=== PATIENT | male | born 1980 | race African-American/Black ===

== ENCOUNTER 2017-05-31 09:36 | Inpatient (IN) | payer MEDICARE, MEDICAID ==
[~2017-05-31] VITALS: Ht 182.9 cm; Wt 97.1 kg
[~2017-05-31 09:36] MED LIST: DILANTIN100 MG ORAL; KEPPRA500 M4 ORAL; KEPPRA500 MG ORAL
[2017-05-31] MEDS ORDERED: levETIRAcetam 500 MG in D5W 110 ML IV ONE (09:45)
[2017-05-31] MEDS ORDERED: levETIRAcetam 500mg vial IV ONE (09:53)
[2017-05-31 09:58] LABS: BASOPHILS % (AUTO) 0.8 % (0.0-2.0); EOSINOPHILS % (AUTO) 4.6 % (0.0-3.0); LYMPHOCYTES % (AUTO) 27.8 % (20.0-45.0); MEAN CORPUSCULAR HEMOGLOBIN 26.2 PG (27.0-31.0); MEAN CORPUSCULAR HGB CONC 30.1 G/DL (32.0-36.0); MEAN CORPUSCULAR VOLUME 87 FL (80-99); MONOCYTES % (AUTO) 11.8 % (1.0-10.0); PLATELET COUNT 419 K/UL (150-450); RED BLOOD COUNT 5.72 M/UL (4.70-6.10); RED CELL DISTRIBUTION WIDTH 14.4 % (11.6-14.8); WHITE BLOOD COUNT 5.5 K/UL (4.8-10.8)
--- NOTE | 2017-05-31 10:07 | Emergency Room Report ---
History of Present Illness General Chief Complaint: Seizure Source: Patient, EMS Present Illness HPI 36-year-old male presents ED for evaluation of seizure. Per EMS patient was found on the bus with witnessed seizure. No reported head injury. Upon arrival patient is post ictal. EMS was not able to obtain a history regarding the patient. Upon arrival patient was recognized by the ER staff stating that he was here a few days ago with similar presentation of seizure. Patient states he has a history of seizures takes Keppra and Dilantin. States he is compliant with his medications. Denies alcohol drug use. States he feels okay otherwise. No other aggravating or relieving factors. Denies any other associated symptoms Allergies: Coded Allergies: No Known Allergies (Unverified , 05/26/17) UNABLE TO ASSESS (Unverified , 05/31/17) Patient History Past Medical History: seizures Past Surgical History: none Pertinent Family History: none Social History: Reports: drug use, Denies: alcohol use, smoking Immunizations: UTD Reviewed Nursing Documentation: PMH: Agreed, PSxH: Agreed Nursing Documentation-PMH Past Medical History Deferred: Pt Cognitively Impaired Review of Systems All Other Systems: negative except mentioned in HPI Physical Exam Vital Signs Date Time Temp Pulse Resp B/P Pulse Ox O2 Delivery O2 Flow Rate FiO2 05/31/17 09:19 113 20 124/82 97 Room Air Sp02 EP Interpretation: reviewed, normal General Appearance: no apparent distress, GCS 15, non-toxic, Postictal Head: normocephalic, atraumatic Eyes: bilateral eye PERRL, bilateral eye normal inspection ENT: hearing grossly normal, normal pharynx, no angioedema, normal voice Neck: full range of motion, supple/symm/no masses Respiratory: chest non-tender, lungs clear, normal breath sounds, speaking full sentences Cardiovascular #1: regular rate, rhythm, no edema Cardiovascular #2: 2+ carotid (R), 2+ carotid (L), 2+ radial (R), 2+ radial (L) , 2+ dorsalis pedis (R), 2+ dorsalis pedis (L) Gastrointestinal: normal bowel sounds, non tender, soft, non-distended, no guarding, no rebound Rectal: deferred Genitourinary: normal inspection, no CVA tenderness Musculoskeletal: back normal, gait/station normal, normal range of motion, non- tender Neurologic: alert, responsive, motor strength/tone normal, sensory intact, speech normal Psychiatric: judgement/insight normal, mood/affect normal, no suicidal/ homicidal ideation Reflexes: 3+ bicep (R), 3+ bicep (L), 3+ tricep (R), 3+ tricep (L), 3+ knee (R) , 3+ knee (L) Skin: normal color, no rash, warm/dry, well hydrated Lymphatic: no adenopathy Medical Decision Making Diagnostic Impression: Primary Impression: Seizure disorder Additional Impressions: Patient's noncompliance with other medical treatment and regimen Substance abuse ER Course Hospital Course 36-year-old male presents to ED status post seizure. History of seizure Differential diagnosis includes- breakthrough seizure, alcohol abuse, noncompliance with medication Clinical course Patient placed on stretcher. Initial history and physical I ordered labs, IV fluids, Keppra Labs-BUN/Cr elevated, no leukocytosis noted, hemoglobin/hematocrit stable. dilantin level low. Utox + ampehtamiens, THC EKG - NSR, no acute changes interprete by me Given loading dose of Dilantin. Patient was seen here a few days ago with similar presentation. Was discharged with Dilantin however it is clear that patient does not take his medications. Given that patient is still altered I believe he should be admitted. Case discussed with Dr. Mcmahan and he agreed to accept the patient to his service for further care and support. i. I feel this is a highly complex case requiring extensive working including EKG/Rhythm strip, Xray/CT/US, Blood/urine lab work, repeat exams while in ED, and administration of strong opiates/narcotics for pain control, admission to hospital or close patient follow up. Diagnosis - seizure, noncompliance with medical treatment regimen, substance abuse, VAN admitted to telemetry in serious condition Labs Test 05/31/17 09:45 05/31/17 10:02 White Blood Count 5.5 K/UL (4.8-10.8) Red Blood Count 5.72 M/UL (4.70-6.10) Hemoglobin 15.0 G/DL (14.2-18.0) Hematocrit 49.7 % (42.0-52.0) Mean Corpuscular Volume 87 FL (80-99) Mean Corpuscular Hemoglobin 26.2 PG (27.0-31.0) Mean Corpuscular Hemoglobin Concent 30.1 G/DL (32.0-36.0) Red Cell Distribution Width 14.4 % (11.6-14.8) Platelet Count 419 K/UL (150-450) Mean Platelet Volume 7.0 FL (6.5-10.1) Neutrophils (%) (Auto) 55.0 % (45.0-75.0) Lymphocytes (%) (Auto) 27.8 % (20.0-45.0) Monocytes (%) (Auto) 11.8 % (1.0-10.0) Eosinophils (%) (Auto) 4.6 % (0.0-3.0) Basophils (%) (Auto) 0.8 % (0.0-2.0) Sodium Level 141 mEQ/L (135-145) Potassium Level 3.9 mEQ/L (3.4-4.9) Chloride Level 96 mEQ/L (98-107) Carbon Dioxide Level 10 mEQ/L (20-30) Anion Gap 35 (5-15) Blood Urea Nitrogen 14 mg/dL (7-23) Creatinine 1.5 mg/dL (0.7-1.2) Estimat Glomerular Filtration Rate > 60 mL/min (>60) Glucose Level 118 mg/dL (74-106) Calcium Level 9.5 mg/dL (8.6-10.2) Total Bilirubin 0.3 mg/dL (0.0-1.2) Aspartate Amino Transf (AST/SGOT) 17 U/L (5-40) Alanine Aminotransferase (ALT/SGPT) 12 U/L (3-41) Alkaline Phosphatase 124 U/L (40-129) Total Protein 8.3 g/dL (6.6-8.7) Albumin 4.5 g/dL (3.5-5.2) Globulin 3.8 g/dL Albumin/Globulin Ratio 1.1 (1.0-2.7) Salicylates Level < 1 mg/dL (10-30) Acetaminophen Level < 10 ug/mL (10-30) Phenytoin (Dilantin) Level 1.0 ug/mL (10-20) Serum Alcohol < 10 mg/dL Urine Opiates Screen Negative (NEGATIVE) Urine Barbiturates Screen Negative (NEGATIVE) Phencyclidine (PCP) Screen Negative (NEGATIVE) Urine Amphetamines Screen Positive (NEGATIVE) Urine Benzodiazepines Screen Negative (NEGATIVE) Urine Cocaine Screen Negative (NEGATIVE) Urine Marijuana (THC) Screen Positive (NEGATIVE) EKG Diagnostic Results Rate: tachycardiac Rhythm: NSR ST Segments: no acute changes ASA given to the pt in ED: No Rhythm Strip Diag. Results EP Interpretation: yes Rhythm: NSR, no PVC's, no ectopy Last Vital Signs Date Time Temp Pulse Resp B/P Pulse Ox O2 Delivery O2 Flow Rate FiO2 05/31/17 09:19 113 20 124/82 97 Room Air Status: improved Disposition: ADMITTED INPATIENT Condition: Serious ALEXANDRE KRUSE M.D. May 31, 2017 10:07
[2017-05-31 10:17] LABS: ACETAMINOPHEN < 10 ug/mL (10-30); ALANINE AMINOTRANSFERASE 12 U/L (3-41); ALBUMIN/GLOBULIN RATIO 1.1 (1.0-2.7); ALCOHOL < 10 mg/dL; ANION GAP 35 (5-15); ASPARTATE AMINO TRANSFERASE 17 U/L (5-40); CALCIUM 9.5 mg/dL (8.6-10.2); CARBON DIOXIDE 10 mEQ/L (20-30); CHLORIDE 96 mEQ/L (98-107); CREATININE 1.5 mg/dL (0.7-1.2); GLOMERULAR FILTRATION RATE > 60 mL/min (>60); HEMOLYSIS 14; POTASSIUM 3.9 mEQ/L (3.4-4.9); SODIUM 141 mEQ/L (135-145); TOTAL PROTEIN 8.3 g/dL (6.6-8.7)
[2017-05-31 10:27] VITALS: BP 108/72
[2017-05-31] MEDS ORDERED: Phenytoin 1,000 MG in NS 275 ML IV ONE (10:30)
[2017-05-31 12:46] VITALS: BP 104/59
[2017-05-31] MEDS ORDERED: Morphine Sulfate 2mg/ml Inj IVP ONE (13:30)
[2017-05-31 14:20] VITALS: BP 128/66
[2017-05-31] MEDS ORDERED: LAMICTAL5 MG PO (14:44)
[2017-05-31] MEDS ORDERED: PHENYTOIN SODI200 MG PO (14:44)
[2017-05-31] MEDS ORDERED: Mylanta II UD 30ml ORAL PRN (14:45)
[2017-05-31] MEDS ORDERED: LORazepam Inj 2mg/ml 1ml IV PRN (14:45)
[2017-05-31] MEDS ORDERED: Morphine Sulfate 2mg/ml Inj IVP PRN (15:00)
[2017-05-31 16:30] VITALS: BP 108/66
--- NOTE | 2017-05-31 18:11 | Neurology Progress Note ---
Objective Physical Exam Last Vital Signs Date Time Temp Pulse Resp B/P Pulse Ox O2 Delivery O2 Flow Rate FiO2 05/31/17 14:20 97.3 92 16 128/66 97 Room Air Laboratory Tests Test 05/31/17 09:45 05/31/17 10:02 White Blood Count 5.5 K/UL (4.8-10.8) Red Blood Count 5.72 M/UL (4.70-6.10) Hemoglobin 15.0 G/DL (14.2-18.0) Hematocrit 49.7 % (42.0-52.0) Mean Corpuscular Volume 87 FL (80-99) Mean Corpuscular Hemoglobin 26.2 PG (27.0-31.0) L Mean Corpuscular Hemoglobin Concent 30.1 G/DL (32.0-36.0) L Red Cell Distribution Width 14.4 % (11.6-14.8) Platelet Count 419 K/UL (150-450) Mean Platelet Volume 7.0 FL (6.5-10.1) Neutrophils (%) (Auto) 55.0 % (45.0-75.0) Lymphocytes (%) (Auto) 27.8 % (20.0-45.0) Monocytes (%) (Auto) 11.8 % (1.0-10.0) H Eosinophils (%) (Auto) 4.6 % (0.0-3.0) H Basophils (%) (Auto) 0.8 % (0.0-2.0) Sodium Level 141 mEQ/L (135-145) Potassium Level 3.9 mEQ/L (3.4-4.9) Chloride Level 96 mEQ/L (98-107) L Carbon Dioxide Level 10 mEQ/L (20-30) L Anion Gap 35 (5-15) H Blood Urea Nitrogen 14 mg/dL (7-23) Creatinine 1.5 mg/dL (0.7-1.2) H Estimat Glomerular Filtration Rate > 60 mL/min (>60) Glucose Level 118 mg/dL (74-106) H Calcium Level 9.5 mg/dL (8.6-10.2) Total Bilirubin 0.3 mg/dL (0.0-1.2) Aspartate Amino Transf (AST/SGOT) 17 U/L (5-40) Alanine Aminotransferase (ALT/SGPT) 12 U/L (3-41) Alkaline Phosphatase 124 U/L (40-129) Total Protein 8.3 g/dL (6.6-8.7) Albumin 4.5 g/dL (3.5-5.2) Globulin 3.8 g/dL Albumin/Globulin Ratio 1.1 (1.0-2.7) Salicylates Level < 1 mg/dL (10-30) L Acetaminophen Level < 10 ug/mL (10-30) L Phenytoin (Dilantin) Level 1.0 ug/mL (10-20) L Serum Alcohol < 10 mg/dL Urine Opiates Screen Negative (NEGATIVE) Urine Barbiturates Screen Negative (NEGATIVE) Phencyclidine (PCP) Screen Negative (NEGATIVE) Urine Amphetamines Screen Positive (NEGATIVE) H Urine Benzodiazepines Screen Negative (NEGATIVE) Urine Cocaine Screen Negative (NEGATIVE) Urine Marijuana (THC) Screen Positive (NEGATIVE) H Impression/Recommendations Problems: (1) Epileptic seizure, generalized (2) Substance abuse (3) Patient's noncompliance with other medical treatment and regimen (4) VAN (acute kidney injury) Status: unchanged Recommendations #[id number] JEREMY LAMBERT May 31, 2017 18:11
--- NOTE | 2017-05-31 18:45 | Consultation ---
History of Present Illness General Date patient seen: May 31, 2017 Chief Complaint: Seizure Reason for Consultation: inpatient management Present Illness HPI 36-year-old male with hx of chronic seizures presents ED for evaluation of seizure. He was found on the bus with witnessed seizure. No reported head injury. Upon arrival patient is post ictal. he has a history of seizures takes Keppra and Dilantin. States he is compliant with his medications. He is admitted for uncontrolled seizures. Allergies: Coded Allergies: IODINE (Verified Allergy, Severe, Rashes, "throat closes up", tachypnea, ) SHELLFISH DERIVED (Verified Allergy, Intermediate, Rashes, "throat closes up," tachypnea, 05/31/17) Medication History Scheduled Lamotrigine (Lamictal), 5 MG PO BID, (Reported) Levetiracetam (Keppra), Unknown Dose ORAL EVERY 12 HOURS, (Reported) Levetiracetam (Keppra), 500 MG ORAL BID Phenytoin Sodium Extended (Phenytoin Sodium Extended), 400 MG PO QHS, (Reported) Discontinued Medications Phenytoin Sodium Extended* (Dilantin*), Unknown Dose ORAL BEDTIME, (Reported) Discontinued Reason: Prescription changed Patient History Healthcare decision maker Resuscitation status Advanced Directive on File Past Medical/Surgical History Past Medical/Surgical History: (1) Seizure disorder (2) Substance abuse Review of Systems All Other Systems: negative except mentioned in HPI Physical Exam General Appearance: WD/WN Lines, tubes and drains: peripheral HEENT: normocephalic Neck: non-tender Respiratory/Chest: chest wall non-tender Cardiovascular/Chest: normal peripheral pulses Abdomen: normal bowel sounds Genitourinary/Rectal: normal genital exam Extremities: normal range of motion Skin Exam: normal pigmentation Last 24 Hour Vital Signs Date Time Temp Pulse Resp B/P Pulse Ox O2 Delivery O2 Flow Rate FiO2 05/31/17 16:30 98.9 84 20 108/66 96 Room Air 05/31/17 14:20 97.3 92 16 128/66 97 Room Air 05/31/17 14:04 88 16 103/59 99 Room Air 05/31/17 12:46 97.3 91 16 104/59 99 Room Air 05/31/17 10:27 97.6 96 19 108/72 98 Room Air 05/31/17 09:36 106 21 Room Air 05/31/17 09:19 113 20 124/82 97 Room Air Laboratory Tests Test 05/31/17 09:45 05/31/17 10:02 White Blood Count 5.5 K/UL (4.8-10.8) Red Blood Count 5.72 M/UL (4.70-6.10) Hemoglobin 15.0 G/DL (14.2-18.0) Hematocrit 49.7 % (42.0-52.0) Mean Corpuscular Volume 87 FL (80-99) Mean Corpuscular Hemoglobin 26.2 PG (27.0-31.0) L Mean Corpuscular Hemoglobin Concent 30.1 G/DL (32.0-36.0) L Red Cell Distribution Width 14.4 % (11.6-14.8) Platelet Count 419 K/UL (150-450) Mean Platelet Volume 7.0 FL (6.5-10.1) Neutrophils (%) (Auto) 55.0 % (45.0-75.0) Lymphocytes (%) (Auto) 27.8 % (20.0-45.0) Monocytes (%) (Auto) 11.8 % (1.0-10.0) H Eosinophils (%) (Auto) 4.6 % (0.0-3.0) H Basophils (%) (Auto) 0.8 % (0.0-2.0) Sodium Level 141 mEQ/L (135-145) Potassium Level 3.9 mEQ/L (3.4-4.9) Chloride Level 96 mEQ/L (98-107) L Carbon Dioxide Level 10 mEQ/L (20-30) L Anion Gap 35 (5-15) H Blood Urea Nitrogen 14 mg/dL (7-23) Creatinine 1.5 mg/dL (0.7-1.2) H Estimat Glomerular Filtration Rate > 60 mL/min (>60) Glucose Level 118 mg/dL (74-106) H Calcium Level 9.5 mg/dL (8.6-10.2) Total Bilirubin 0.3 mg/dL (0.0-1.2) Aspartate Amino Transf (AST/SGOT) 17 U/L (5-40) Alanine Aminotransferase (ALT/SGPT) 12 U/L (3-41) Alkaline Phosphatase 124 U/L (40-129) Total Protein 8.3 g/dL (6.6-8.7) Albumin 4.5 g/dL (3.5-5.2) Globulin 3.8 g/dL Albumin/Globulin Ratio 1.1 (1.0-2.7) Salicylates Level < 1 mg/dL (10-30) L Acetaminophen Level < 10 ug/mL (10-30) L Phenytoin (Dilantin) Level 1.0 ug/mL (10-20) L Serum Alcohol < 10 mg/dL Urine Opiates Screen Negative (NEGATIVE) Urine Barbiturates Screen Negative (NEGATIVE) Phencyclidine (PCP) Screen Negative (NEGATIVE) Urine Amphetamines Screen Positive (NEGATIVE) H Urine Benzodiazepines Screen Negative (NEGATIVE) Urine Cocaine Screen Negative (NEGATIVE) Urine Marijuana (THC) Screen Positive (NEGATIVE) H Height (Feet): 6 Height (Inches): 0.00 Weight (Pounds): 214 Medications Current Medications Medications (Trade) Dose Ordered Sig/Tylor Route PRN Reason Start Time Stop Time Status Last Admin Dose Admin Acetaminophen (Tylenol) 650 mg Q4H PRN ORAL T>100.5 05/31/17 14:45 06/30/17 14:44 Al Hydroxide/Mg Hydroxide (Mylanta II) 30 ml Q6H PRN ORAL dyspepsia 05/31/17 14:45 06/30/17 14:44 Dextrose (Dextrose 50%) STAT PRN IV Hypoglycemia 05/31/17 14:45 06/30/17 14:44 Heparin Sodium (Porcine) (Heparin 5000 units/ml) 5,000 units EVERY 12 HOURS SUBQ 05/31/17 21:00 06/30/17 20:59 Lamotrigine (LaMICtal) 50 mg Q12HR ORAL 05/31/17 21:00 06/30/17 20:59 Levetiracetam (Keppra) 1,500 mg Q12HR ORAL 05/31/17 21:00 06/30/17 20:59 Lorazepam (Ativan 2mg/ml 1ml) 2 mg Q1H PRN IV seizures 05/31/17 14:45 06/07/17 14:44 Morphine Sulfate (Morphine Sulfate) 1 mg Q4H PRN IVP PAIN 4-10 05/31/17 15:00 06/07/17 14:59 05/31/17 17:08 Ondansetron HCl (Zofran) 4 mg Q6H PRN IVP Nausea & Vomiting 05/31/17 14:45 06/30/17 14:44 Phenytoin (Dilantin) 300 mg BEDTIME ORAL 05/31/17 21:00 06/30/17 20:59 Polyethylene Glycol (Miralax) 17 gm HSPRN PRN ORAL Constipation 05/31/17 21:00 06/30/17 20:59 Zolpidem Tartrate (Ambien) 5 mg HSPRN PRN ORAL Insomnia 05/31/17 21:00 06/30/17 20:59 Assessment/Plan Problem List: (1) Epileptic seizure, generalized ICD Codes: G40.309 - Generalized idiopathic epilepsy and epileptic syndromes, not intractable, without status epilepticus SNOMED: 57390997 (2) VAN (acute kidney injury) ICD Codes: N17.9 - Acute kidney failure, unspecified SNOMED: 28395480 Assessment/Plan neuro evaluation resume meds telemetry monitoring NIYA GE May 31, 2017 18:45
[2017-05-31 20:00] VITALS: BP 111/68
[2017-05-31] MEDS: Heparin 5000 units/ml inj SUBQ SCH (20:39)
[2017-05-31] MEDS ORDERED: Miralax 17gm pkt ORAL PRN (21:00)
[2017-05-31] MEDS ORDERED: Zolpidem 5mg tab ORAL PRN (21:00)
[2017-05-31] MEDS ORDERED: Phenytoin 100mg cap ORAL SCH (21:00)
[2017-06-01] VITALS (7 sets, daily range): BP systolic 101–111; BP diastolic 57–70
--- NOTE | 2017-06-01 08:46 | General Progress Note ---
Assessment/Plan Problem List: (1) Substance abuse ICD Codes: F19.10 - Other psychoactive substance abuse, uncomplicated SNOMED: 86794002 (2) Patient's noncompliance with other medical treatment and regimen ICD Codes: Z91.19 - Patient's noncompliance with other medical treatment and regimen SNOMED: 462605564 (3) Seizure disorder ICD Codes: G40.909 - Epilepsy, unspecified, not intractable, without status epilepticus SNOMED: 151029490 (4) Epileptic seizure, generalized ICD Codes: G40.309 - Generalized idiopathic epilepsy and epileptic syndromes, not intractable, without status epilepticus SNOMED: 04074236 (5) VAN (acute kidney injury) ICD Codes: N17.9 - Acute kidney failure, unspecified SNOMED: 14075748 Status: stable, progressing, tolerating diet Assessment/Plan ot pt diet seizure control detox cbc bmp amd dc plan Subjective Constitutional: Reports: weakness Allergies: Coded Allergies: IODINE (Verified Allergy, Severe, Rashes, "throat closes up", tachypnea, ) SHELLFISH DERIVED (Verified Allergy, Intermediate, Rashes, "throat closes up," tachypnea, 05/31/17) All Systems: reviewed and negative except above Subjective awake calm sl gen ache Objective Last 24 Hour Vital Signs Date Time Temp Pulse Resp B/P Pulse Ox O2 Delivery O2 Flow Rate FiO2 06/01/17 07:45 97.7 95 20 106/61 97 Room Air 06/01/17 04:00 97.9 76 18 108/57 97 Room Air 06/01/17 04:00 73 06/01/17 00:00 97.9 71 20 111/65 97 Room Air 06/01/17 00:00 80 05/31/17 20:00 98.9 91 20 111/68 96 Room Air 05/31/17 20:00 94 05/31/17 16:30 98.9 84 20 108/66 96 Room Air 05/31/17 16:00 82 05/31/17 14:20 97.3 92 16 128/66 97 Room Air 05/31/17 14:04 88 16 103/59 99 Room Air 05/31/17 12:46 97.3 91 16 104/59 99 Room Air 05/31/17 10:27 97.6 96 19 108/72 98 Room Air 05/31/17 09:36 106 21 Room Air 05/31/17 09:19 113 20 124/82 97 Room Air Intake and Output 05/31/17 06/01/17 19:00 07:00 Intake Total 1890 ml 500 ml Balance 1890 ml 500 ml Intake Oral 480 ml 500 ml IV Total 1410 ml # Voids 2 Laboratory Tests 05/31/17 09:45: White Blood Count 5.5, Red Blood Count 5.72, Hemoglobin 15.0, Hematocrit 49.7, Mean Corpuscular Volume 87, Mean Corpuscular Hemoglobin 26.2L, Mean Corpuscular Hemoglobin Concent 30.1L, Red Cell Distribution Width 14.4, Platelet Count 419, Mean Platelet Volume 7.0, Neutrophils (%) (Auto) 55.0, Lymphocytes (%) (Auto) 27.8, Monocytes (%) (Auto) 11.8H, Eosinophils (%) (Auto) 4.6H, Basophils (%) ( Auto) 0.8, Sodium Level 141, Potassium Level 3.9, Chloride Level 96L, Carbon Dioxide Level 10L, Anion Gap 35H, Blood Urea Nitrogen 14, Creatinine 1.5H, Estimat Glomerular Filtration Rate > 60, Glucose Level 118H, Calcium Level 9.5, Total Bilirubin 0.3, Aspartate Amino Transf (AST/SGOT) 17, Alanine Aminotransferase (ALT/SGPT) 12, Alkaline Phosphatase 124, Total Protein 8.3, Albumin 4.5, Globulin 3.8, Albumin/Globulin Ratio 1.1, Salicylates Level < 1L, Acetaminophen Level < 10L, Phenytoin (Dilantin) Level 1.0L, Serum Alcohol < 10 05/31/17 10:02: Urine Opiates Screen Negative, Urine Barbiturates Screen Negative, Phencyclidine (PCP) Screen Negative, Urine Amphetamines Screen PositiveH, Urine Benzodiazepines Screen Negative, Urine Cocaine Screen Negative, Urine Marijuana (THC) Screen PositiveH 06/01/17 08:07: White Blood Count [Pending], Red Blood Count [Pending], Hemoglobin [Pending], Hematocrit [Pending], Mean Corpuscular Volume [Pending], Mean Corpuscular Hemoglobin [Pending], Mean Corpuscular Hemoglobin Concent [Pending], Red Cell Distribution Width [Pending], Platelet Count [Pending], Mean Platelet Volume [ Pending], Neutrophils (%) (Auto) [Pending], Lymphocytes (%) (Auto) [Pending], Monocytes (%) (Auto) [Pending], Eosinophils (%) (Auto) [Pending], Basophils (%) (Auto) [Pending], Sodium Level [Pending], Potassium Level [Pending], Chloride Level [Pending], Carbon Dioxide Level [Pending], Blood Urea Nitrogen [Pending], Creatinine [Pending], Estimat Glomerular Filtration Rate [Pending], Glucose Level [Pending], Calcium Level [Pending], Total Bilirubin [Pending], Aspartate Amino Transf (AST/SGOT) [Pending], Alanine Aminotransferase (ALT/SGPT) [Pending] , Alkaline Phosphatase [Pending], Total Protein [Pending], Albumin [Pending], Globulin [Pending] Height (Feet): 6 Height (Inches): 0.00 Weight (Pounds): 214 General Appearance: alert EENT: normal ENT inspection Neck: non-tender, normal alignment, supple Cardiovascular: normal peripheral pulses, normal rate, regular rhythm Respiratory/Chest: chest wall non-tender, lungs clear, normal breath sounds Abdomen: normal bowel sounds, non tender, soft Extremities: normal inspection Edema: no edema noted Arm (L), no edema noted Arm (R), no edema noted Leg (L), no edema noted Leg (R), no edema noted Pedal (L), no edema noted Pedal (R), no edema noted Generalized Neurologic: responsive, motor weakness Skin: normal pigmentation, warm/dry IMANI BOYKIN Jun 01, 2017 08:46
[2017-06-01 08:56] LABS: MEAN CORPUSCULAR HEMOGLOBIN 27.2 PG (27.0-31.0); MEAN CORPUSCULAR HGB CONC 31.3 G/DL (32.0-36.0); MEAN CORPUSCULAR VOLUME 87 FL (80-99); MEAN PLATELET VOLUME 6.9 FL (6.5-10.1); PLATELET COUNT 313 K/UL (150-450); RED BLOOD COUNT 4.64 M/UL (4.70-6.10); RED CELL DISTRIBUTION WIDTH 14.3 % (11.6-14.8); WHITE BLOOD COUNT 3.2 K/UL (4.8-10.8)
[2017-06-01 09:04] LABS: ALANINE AMINOTRANSFERASE 10 U/L (3-41); ALBUMIN/GLOBULIN RATIO 1.3 (1.0-2.7); ANION GAP 9 (5-15); ASPARTATE AMINO TRANSFERASE 10 U/L (5-40); CALCIUM 8.8 mg/dL (8.6-10.2); CARBON DIOXIDE 28 mEQ/L (20-30); CHLORIDE 103 mEQ/L (98-107); CREATININE 1.1 mg/dL (0.7-1.2); GLOMERULAR FILTRATION RATE > 60 mL/min (>60); HEMOLYSIS 5; POTASSIUM 3.5 mEQ/L (3.4-4.9); SODIUM 140 mEQ/L (135-145); TOTAL PROTEIN 6.5 g/dL (6.6-8.7)
--- NOTE | 2017-06-01 09:12 | Pulmonology Progress Note ---
Assessment/Plan Problems: (1) Epileptic seizure, generalized (2) VAN (acute kidney injury) Assessment/Plan no more seizures check electrolytes neuro evaluation appreciated Subjective ROS Limited/Unobtainable: No Allergies: Coded Allergies: IODINE (Verified Allergy, Severe, Rashes, "throat closes up", tachypnea, ) SHELLFISH DERIVED (Verified Allergy, Intermediate, Rashes, "throat closes up," tachypnea, 05/31/17) Objective Last 24 Hour Vital Signs Date Time Temp Pulse Resp B/P Pulse Ox O2 Delivery O2 Flow Rate FiO2 06/01/17 07:45 97.7 95 20 106/61 97 Room Air 06/01/17 04:00 97.9 76 18 108/57 97 Room Air 06/01/17 04:00 73 06/01/17 00:00 97.9 71 20 111/65 97 Room Air 06/01/17 00:00 80 05/31/17 20:00 98.9 91 20 111/68 96 Room Air 05/31/17 20:00 94 05/31/17 16:30 98.9 84 20 108/66 96 Room Air 05/31/17 16:00 82 05/31/17 14:20 97.3 92 16 128/66 97 Room Air 05/31/17 14:04 88 16 103/59 99 Room Air 05/31/17 12:46 97.3 91 16 104/59 99 Room Air 05/31/17 10:27 97.6 96 19 108/72 98 Room Air 05/31/17 09:36 106 21 Room Air 05/31/17 09:19 113 20 124/82 97 Room Air Intake and Output 05/31/17 06/01/17 19:00 07:00 Intake Total 1890 ml 500 ml Balance 1890 ml 500 ml Intake Oral 480 ml 500 ml IV Total 1410 ml # Voids 2 General Appearance: WD/WN HEENT: normocephalic Respiratory/Chest: chest wall non-tender, lungs clear Cardiovascular: normal peripheral pulses, normal rate Abdomen: normal bowel sounds, soft, non tender Genitourinary: normal external genitalia Extremities: no cyanosis Skin: no rash Neurologic/Psychiatric: site director II-XII grossly normal Lymphatic: no neck adenopathy Laboratory Tests 05/31/17 09:45: White Blood Count 5.5, Red Blood Count 5.72, Hemoglobin 15.0, Hematocrit 49.7, Mean Corpuscular Volume 87, Mean Corpuscular Hemoglobin 26.2L, Mean Corpuscular Hemoglobin Concent 30.1L, Red Cell Distribution Width 14.4, Platelet Count 419, Mean Platelet Volume 7.0, Neutrophils (%) (Auto) 55.0, Lymphocytes (%) (Auto) 27.8, Monocytes (%) (Auto) 11.8H, Eosinophils (%) (Auto) 4.6H, Basophils (%) ( Auto) 0.8, Sodium Level 141, Potassium Level 3.9, Chloride Level 96L, Carbon Dioxide Level 10L, Anion Gap 35H, Blood Urea Nitrogen 14, Creatinine 1.5H, Estimat Glomerular Filtration Rate > 60, Glucose Level 118H, Calcium Level 9.5, Total Bilirubin 0.3, Aspartate Amino Transf (AST/SGOT) 17, Alanine Aminotransferase (ALT/SGPT) 12, Alkaline Phosphatase 124, Total Protein 8.3, Albumin 4.5, Globulin 3.8, Albumin/Globulin Ratio 1.1, Salicylates Level < 1L, Acetaminophen Level < 10L, Phenytoin (Dilantin) Level 1.0L, Serum Alcohol < 10 05/31/17 10:02: Urine Opiates Screen Negative, Urine Barbiturates Screen Negative, Phencyclidine (PCP) Screen Negative, Urine Amphetamines Screen PositiveH, Urine Benzodiazepines Screen Negative, Urine Cocaine Screen Negative, Urine Marijuana (THC) Screen PositiveH 06/01/17 08:07: White Blood Count 3.2L, Red Blood Count 4.64L, Hemoglobin 12.6L, Hematocrit 40.3L, Mean Corpuscular Volume 87, Mean Corpuscular Hemoglobin 27.2, Mean Corpuscular Hemoglobin Concent 31.3L, Red Cell Distribution Width 14.3, Platelet Count 313, Mean Platelet Volume 6.9, Neutrophils (%) (Auto) , Lymphocytes (%) (Auto) , Monocytes (%) (Auto) , Eosinophils (%) (Auto) , Basophils (%) (Auto) , Sodium Level 140, Potassium Level 3.5, Chloride Level 103 , Carbon Dioxide Level 28, Anion Gap 9, Blood Urea Nitrogen 10, Creatinine 1.1, Estimat Glomerular Filtration Rate > 60, Glucose Level 83, Calcium Level 8.8, Total Bilirubin 0.3, Aspartate Amino Transf (AST/SGOT) 10, Alanine Aminotransferase (ALT/SGPT) 10, Alkaline Phosphatase 91, Total Protein 6.5L, Albumin 3.7, Globulin 2.8, Albumin/Globulin Ratio 1.3, Neutrophils % (Manual) [ Pending], Lymphocytes % (Manual) [Pending], Platelet Estimate [Pending], Platelet Morphology [Pending] Current Medications Medications (Trade) Dose Ordered Sig/Tylor Route PRN Reason Start Time Stop Time Status Last Admin Dose Admin Acetaminophen (Tylenol) 650 mg Q4H PRN ORAL T>100.5 05/31/17 14:45 06/30/17 14:44 Al Hydroxide/Mg Hydroxide (Mylanta II) 30 ml Q6H PRN ORAL dyspepsia 05/31/17 14:45 06/30/17 14:44 Dextrose (Dextrose 50%) STAT PRN IV Hypoglycemia 05/31/17 14:45 06/30/17 14:44 Heparin Sodium (Porcine) (Heparin 5000 units/ml) 5,000 units EVERY 12 HOURS SUBQ 05/31/17 21:00 06/30/17 20:59 05/31/17 20:39 Lamotrigine (LaMICtal) 50 mg Q12HR ORAL 05/31/17 21:00 06/30/17 20:59 05/31/17 20:38 Levetiracetam (Keppra) 1,500 mg Q12HR ORAL 05/31/17 21:00 06/30/17 20:59 05/31/17 20:38 Lorazepam (Ativan 2mg/ml 1ml) 2 mg Q1H PRN IV seizures 05/31/17 14:45 06/07/17 14:44 Morphine Sulfate (Morphine Sulfate) 1 mg Q4H PRN IVP PAIN 4-10 05/31/17 15:00 06/07/17 14:59 05/31/17 17:08 Ondansetron HCl (Zofran) 4 mg Q6H PRN IVP Nausea & Vomiting 05/31/17 14:45 06/30/17 14:44 Phenytoin (Dilantin) 300 mg BEDTIME ORAL 05/31/17 21:00 06/30/17 20:59 05/31/17 20:38 Polyethylene Glycol (Miralax) 17 gm HSPRN PRN ORAL Constipation 05/31/17 21:00 06/30/17 20:59 Zolpidem Tartrate (Ambien) 5 mg HSPRN PRN ORAL Insomnia 05/31/17 21:00 06/30/17 20:59 NIYA GE Jun 01, 2017 09:12
[2017-06-01] MEDS: Heparin 5000 units/ml inj SUBQ SCH ×2 (09:52→20:56)
[2017-06-01 10:40] LABS: BAND NEUTROPHILS % (MANUAL) 0 % (0-8); BASOPHILS % (MANUAL) 0 % (0-2); EOSINOPHILS % (MANUAL) 9 % (0-3); LYMPHOCYTES % (MANUAL) 29 % (20-45); NEUTROPHILS % (MANUAL) 48 % (45-75); PLATELET ESTIMATE ADEQUATE; PLATELET MORPHOLOGY NORMAL; TOTAL CELLS COUNTED 100
--- NOTE | 2017-06-01 13:11 | Neurology Progress Note ---
Interim History Interim History ROS Limited/Unobtainable: No Complaints: almost a seizure feel not well Events: stable Objective Physical Exam Last Vital Signs Date Time Temp Pulse Resp B/P Pulse Ox O2 Delivery O2 Flow Rate FiO2 06/01/17 12:24 81 06/01/17 11:21 97.9 20 101/68 95 Room Air Laboratory Tests Test 06/01/17 08:07 White Blood Count 3.2 K/UL (4.8-10.8) L Red Blood Count 4.64 M/UL (4.70-6.10) L Hemoglobin 12.6 G/DL (14.2-18.0) L Hematocrit 40.3 % (42.0-52.0) L Mean Corpuscular Volume 87 FL (80-99) Mean Corpuscular Hemoglobin 27.2 PG (27.0-31.0) Mean Corpuscular Hemoglobin Concent 31.3 G/DL (32.0-36.0) L Red Cell Distribution Width 14.3 % (11.6-14.8) Platelet Count 313 K/UL (150-450) Mean Platelet Volume 6.9 FL (6.5-10.1) Neutrophils (%) (Auto) % (45.0-75.0) Lymphocytes (%) (Auto) % (20.0-45.0) Monocytes (%) (Auto) % (1.0-10.0) Eosinophils (%) (Auto) % (0.0-3.0) Basophils (%) (Auto) % (0.0-2.0) Differential Total Cells Counted 100 Neutrophils % (Manual) 48 % (45-75) Lymphocytes % (Manual) 29 % (20-45) Monocytes % (Manual) 14 % (1-10) H Eosinophils % (Manual) 9 % (0-3) H Basophils % (Manual) 0 % (0-2) Band Neutrophils 0 % (0-8) Platelet Estimate Adequate Platelet Morphology Normal Red Blood Cell Morphology Normal Sodium Level 140 mEQ/L (135-145) Potassium Level 3.5 mEQ/L (3.4-4.9) Chloride Level 103 mEQ/L (98-107) Carbon Dioxide Level 28 mEQ/L (20-30) Anion Gap 9 (5-15) Blood Urea Nitrogen 10 mg/dL (7-23) Creatinine 1.1 mg/dL (0.7-1.2) Estimat Glomerular Filtration Rate > 60 mL/min (>60) Glucose Level 83 mg/dL (74-106) Calcium Level 8.8 mg/dL (8.6-10.2) Total Bilirubin 0.3 mg/dL (0.0-1.2) Aspartate Amino Transf (AST/SGOT) 10 U/L (5-40) Alanine Aminotransferase (ALT/SGPT) 10 U/L (3-41) Alkaline Phosphatase 91 U/L (40-129) Total Protein 6.5 g/dL (6.6-8.7) L Albumin 3.7 g/dL (3.5-5.2) Globulin 2.8 g/dL Albumin/Globulin Ratio 1.3 (1.0-2.7) General: well developed, well nourished, no acute distress Head: normocophalic, atraumatic Neurologic Exam Mental Status: awake, alert, oriented x4 Speech: normal speech, no dysarthia Language: normal language, no aphasia Cranial Nerve II: fundus normal, visual ramírez, no papilledema Cranial Nerves III, IV, : PERRLA, EOMI, pupils Cranial Nerve V: normal facial sensations Cranial Nerve VII: no facial asymmetry Cranial Nerve VIII: normal hearing, no nystagmus Cranial Nerve IX: normal palate elevation, gag response Cranial Nerve X: no voice hoarseness Cranial Nerve XI: SCM symmetric, trapezii function normal Cranial Nerve XII: tongue midline, no tongue atrophy/fasciculations Motor System: normal muscle tone, strength 5/5, no involuntary movement, no muscle wasting Sensory: normal pinprick Coordination: normal finger to nose bilaterally Deep Tendon Reflexes: 1+ ankle (L), 1+ ankle (R), 1+ bicep (L), 1+ bicep (R), 1 + brachioradialis (L), 1+ brachioradialis (R), 1+ knee (L), 1+ knee (R), 1+ tricep (L), 1+ tricep (R) Reflexes: flexor plantar (L), flexor plantar (R) Stance: normal Gait: stable, normal regular, heel + toe gait Impression/Recommendations Problems: (1) Epileptic seizure, generalized (2) Substance abuse (3) Patient's noncompliance with other medical treatment and regimen (4) VAN (acute kidney injury) Status: stable, progressing, tolerating diet Recommendations #[id number] dilantin level keppra 1500mg bid placement psych JEREMY Cherry Jun 01, 2017 13:11
[2017-06-01] MEDS ORDERED: Mylanta II UD 30ml ORAL PRN (16:30)
[2017-06-01] MEDS ORDERED: LORazepam Inj 2mg/ml 1ml IV PRN (16:45)
[2017-06-01] MEDS ORDERED: Morphine Sulfate 2mg/ml Inj IVP PRN (17:00)
[2017-06-01] MEDS: Phenytoin 100mg cap ORAL SCH (20:56)
[2017-06-01] MEDS ORDERED: Miralax 17gm pkt ORAL PRN (21:00)
[2017-06-01] MEDS ORDERED: Zolpidem 5mg tab ORAL PRN (21:00)
[2017-06-02 00:03] VITALS: BP 120/68
[2017-06-02 04:20] VITALS: BP 116/54
[2017-06-02 06:57] LABS: BASOPHILS % (AUTO) 0.9 % (0.0-2.0); LYMPHOCYTES % (AUTO) 27.9 % (20.0-45.0); MEAN CORPUSCULAR HEMOGLOBIN 27.3 PG (27.0-31.0); MEAN CORPUSCULAR HGB CONC 31.5 G/DL (32.0-36.0); MEAN CORPUSCULAR VOLUME 87 FL (80-99); MONOCYTES % (AUTO) 11.8 % (1.0-10.0); NEUTROPHILS % (AUTO) 52.5 % (45.0-75.0); PLATELET COUNT 335 K/UL (150-450); RED BLOOD COUNT 4.69 M/UL (4.70-6.10); RED CELL DISTRIBUTION WIDTH 14.2 % (11.6-14.8); WHITE BLOOD COUNT 3.6 K/UL (4.8-10.8)
[2017-06-02 07:00] LABS: ANION GAP 7 (5-15); CARBON DIOXIDE 30 mEQ/L (20-30); CHLORIDE 102 mEQ/L (98-107); CREATININE 1.1 mg/dL (0.7-1.2); GLOMERULAR FILTRATION RATE > 60 mL/min (>60); HEMOLYSIS 7; POTASSIUM 4.1 mEQ/L (3.4-4.9); SODIUM 139 mEQ/L (135-145)
--- NOTE | 2017-06-02 07:42 | General Progress Note ---
Assessment/Plan Problem List: (1) Substance abuse ICD Codes: F19.10 - Other psychoactive substance abuse, uncomplicated SNOMED: 09232077 (2) Patient's noncompliance with other medical treatment and regimen ICD Codes: Z91.19 - Patient's noncompliance with other medical treatment and regimen SNOMED: 538612433 (3) Seizure disorder ICD Codes: G40.909 - Epilepsy, unspecified, not intractable, without status epilepticus SNOMED: 815878774 (4) Epileptic seizure, generalized ICD Codes: G40.309 - Generalized idiopathic epilepsy and epileptic syndromes, not intractable, without status epilepticus SNOMED: 69544068 (5) VAN (acute kidney injury) ICD Codes: N17.9 - Acute kidney failure, unspecified SNOMED: 15840563 Status: stable, progressing, tolerating diet Assessment/Plan ot pt diet seizure control detox cbc bmp amd dc plan snf Subjective Constitutional: Reports: weakness Allergies: Coded Allergies: IODINE (Verified Allergy, Severe, Rashes, "throat closes up", tachypnea, ) SHELLFISH DERIVED (Verified Allergy, Intermediate, Rashes, "throat closes up," tachypnea, 05/31/17) All Systems: reviewed and negative except above Subjective awake calm eating Objective Last 24 Hour Vital Signs Date Time Temp Pulse Resp B/P Pulse Ox O2 Delivery O2 Flow Rate FiO2 06/02/17 04:20 97.7 88 17 116/54 96 Room Air 06/02/17 00:03 97.5 82 18 120/68 97 Room Air 06/01/17 20:02 97.3 85 19 103/65 99 Room Air 06/01/17 16:40 98.2 77 20 104/70 94 Room Air 06/01/17 15:27 98.0 82 20 106/69 99 Room Air 06/01/17 12:24 81 06/01/17 11:21 97.9 82 20 101/68 95 Room Air 06/01/17 10:02 87 06/01/17 07:45 97.7 95 20 106/61 97 Room Air Intake and Output 06/01/17 06/02/17 19:00 07:00 Intake Total 1610 ml 480 ml Balance 1610 ml 480 ml Intake Oral 1610 ml 480 ml # Voids 3 5 Laboratory Tests 06/01/17 08:07: White Blood Count 3.2L, Red Blood Count 4.64L, Hemoglobin 12.6L, Hematocrit 40.3L, Mean Corpuscular Volume 87, Mean Corpuscular Hemoglobin 27.2, Mean Corpuscular Hemoglobin Concent 31.3L, Red Cell Distribution Width 14.3, Platelet Count 313, Mean Platelet Volume 6.9, Neutrophils (%) (Auto) , Lymphocytes (%) (Auto) , Monocytes (%) (Auto) , Eosinophils (%) (Auto) , Basophils (%) (Auto) , Differential Total Cells Counted 100, Neutrophils % ( Manual) 48, Lymphocytes % (Manual) 29, Monocytes % (Manual) 14H, Eosinophils % ( Manual) 9H, Basophils % (Manual) 0, Band Neutrophils 0, Platelet Estimate Adequate, Platelet Morphology Normal, Red Blood Cell Morphology Normal, Sodium Level 140, Potassium Level 3.5, Chloride Level 103, Carbon Dioxide Level 28, Anion Gap 9, Blood Urea Nitrogen 10, Creatinine 1.1, Estimat Glomerular Filtration Rate > 60, Glucose Level 83, Calcium Level 8.8, Total Bilirubin 0.3, Aspartate Amino Transf (AST/SGOT) 10, Alanine Aminotransferase (ALT/SGPT) 10, Alkaline Phosphatase 91, Total Protein 6.5L, Albumin 3.7, Globulin 2.8, Albumin/ Globulin Ratio 1.3 06/02/17 06:01: White Blood Count 3.6L, Red Blood Count 4.69L, Hemoglobin 12.8L, Hematocrit 40.6L, Mean Corpuscular Volume 87, Mean Corpuscular Hemoglobin 27.3, Mean Corpuscular Hemoglobin Concent 31.5L, Red Cell Distribution Width 14.2, Platelet Count 335, Mean Platelet Volume 7.0, Neutrophils (%) (Auto) 52.5, Lymphocytes (%) (Auto) 27.9, Monocytes (%) (Auto) 11.8H, Eosinophils (%) (Auto) 7.0H, Basophils (%) (Auto) 0.9, Sodium Level 139, Potassium Level 4.1, Chloride Level 102, Carbon Dioxide Level 30, Anion Gap 7, Blood Urea Nitrogen 8, Creatinine 1.1, Estimat Glomerular Filtration Rate > 60, Glucose Level 86, Calcium Level 9.0, Phenytoin (Dilantin) Level 7.2L Height (Feet): 6 Height (Inches): 0.00 Weight (Pounds): 214 General Appearance: alert EENT: normal ENT inspection Neck: normal alignment Cardiovascular: normal peripheral pulses, normal rate, regular rhythm Respiratory/Chest: chest wall non-tender, lungs clear, normal breath sounds Abdomen: normal bowel sounds, non tender, soft Extremities: normal inspection Edema: no edema noted Arm (L), no edema noted Arm (R), no edema noted Leg (L), no edema noted Leg (R), no edema noted Pedal (L), no edema noted Pedal (R), no edema noted Generalized Neurologic: responsive, motor weakness Skin: normal pigmentation, warm/dry IMANI BOYKIN Jun 02, 2017 07:42
[2017-06-02 08:38] VITALS: BP 106/63
[2017-06-02] MEDS: Heparin 5000 units/ml inj SUBQ SCH ×2 (08:50→21:42)
[2017-06-02 12:00] VITALS: BP 128/76
[2017-06-02 16:00] VITALS: BP 124/64
[2017-06-02 20:16] VITALS: BP 134/71
[2017-06-02] MEDS: Phenytoin 100mg cap ORAL SCH (21:36)
[2017-06-03 04:00] VITALS: BP 107/68
[2017-06-03 07:20] LABS: MEAN CORPUSCULAR HEMOGLOBIN 26.8 PG (27.0-31.0); MEAN CORPUSCULAR VOLUME 87 FL (80-99); MEAN PLATELET VOLUME 7.1 FL (6.5-10.1); PLATELET COUNT 348 K/UL (150-450); RED BLOOD COUNT 4.95 M/UL (4.70-6.10); RED CELL DISTRIBUTION WIDTH 14.1 % (11.6-14.8); WHITE BLOOD COUNT 3.3 K/UL (4.8-10.8)
[2017-06-03 07:50] LABS: ANION GAP 9 (5-15); CALCIUM 8.7 mg/dL (8.6-10.2); CARBON DIOXIDE 29 mEQ/L (20-30); CHLORIDE 101 mEQ/L (98-107); GLOMERULAR FILTRATION RATE > 60 mL/min (>60); HEMOLYSIS 3; POTASSIUM 3.9 mEQ/L (3.4-4.9); SODIUM 139 mEQ/L (135-145)
[2017-06-03 08:00] VITALS: BP 136/62
[2017-06-03] MEDS: Heparin 5000 units/ml inj SUBQ SCH (09:49)
[2017-06-03 10:18] LABS: BAND NEUTROPHILS % (MANUAL) 0 % (0-8); BASOPHILS % (MANUAL) 0 % (0-2); EOSINOPHILS % (MANUAL) 14 % (0-3); LYMPHOCYTES % (MANUAL) 35 % (20-45); NEUTROPHILS % (MANUAL) 47 % (45-75); PLATELET ESTIMATE ADEQUATE; PLATELET MORPHOLOGY NORMAL; TOTAL CELLS COUNTED 100
[2017-06-03 10:19] LABS: HYPOCHROMASIA 1+
[2017-06-03 12:00] VITALS: BP 128/67
--- NOTE | 2017-06-03 15:28 | General Progress Note ---
Assessment/Plan Problem List: (1) Substance abuse ICD Codes: F19.10 - Other psychoactive substance abuse, uncomplicated SNOMED: 99932765 (2) Patient's noncompliance with other medical treatment and regimen ICD Codes: Z91.19 - Patient's noncompliance with other medical treatment and regimen SNOMED: 093632048 (3) Seizure disorder ICD Codes: G40.909 - Epilepsy, unspecified, not intractable, without status epilepticus SNOMED: 750779956 (4) Epileptic seizure, generalized ICD Codes: G40.309 - Generalized idiopathic epilepsy and epileptic syndromes, not intractable, without status epilepticus SNOMED: 69121493 (5) VAN (acute kidney injury) ICD Codes: N17.9 - Acute kidney failure, unspecified SNOMED: 82327472 Status: stable, progressing, tolerating diet Assessment/Plan ot pt diet seizure control detox dc Subjective Constitutional: Reports: weakness Allergies: Coded Allergies: IODINE (Verified Allergy, Severe, Rashes, "throat closes up", tachypnea, ) SHELLFISH DERIVED (Verified Allergy, Intermediate, Rashes, "throat closes up," tachypnea, 05/31/17) All Systems: reviewed and negative except above Subjective awake calm eating Objective Last 24 Hour Vital Signs Date Time Temp Pulse Resp B/P Pulse Ox O2 Delivery O2 Flow Rate FiO2 06/03/17 12:00 98.1 81 20 128/67 98 Room Air 06/03/17 08:00 97.3 87 20 136/62 97 Room Air 06/03/17 04:00 96.8 76 18 107/68 97 Room Air 06/02/17 20:16 97.9 95 18 134/71 99 Room Air 06/02/17 16:00 97.5 90 20 124/64 100 Room Air Intake and Output 06/02/17 06/03/17 19:00 07:00 Intake Total 840 ml 720 ml Balance 840 ml 720 ml Intake Oral 840 ml 720 ml # Voids 2 2 # Bowel Movements 1 Laboratory Tests 06/03/17 05:35: White Blood Count 3.3L, Red Blood Count 4.95, Hemoglobin 13.3L, Hematocrit 42.9 , Mean Corpuscular Volume 87, Mean Corpuscular Hemoglobin 26.8L, Mean Corpuscular Hemoglobin Concent 31.0L, Red Cell Distribution Width 14.1, Platelet Count 348, Mean Platelet Volume 7.1, Neutrophils (%) (Auto) , Lymphocytes (%) (Auto) , Monocytes (%) (Auto) , Eosinophils (%) (Auto) , Basophils (%) (Auto) , Differential Total Cells Counted 100, Neutrophils % ( Manual) 47, Lymphocytes % (Manual) 35, Monocytes % (Manual) 4, Eosinophils % ( Manual) 14H, Basophils % (Manual) 0, Band Neutrophils 0, Platelet Estimate Adequate, Platelet Morphology Normal, Hypochromasia 1+, Sodium Level 139, Potassium Level 3.9, Chloride Level 101, Carbon Dioxide Level 29, Anion Gap 9, Blood Urea Nitrogen 9, Creatinine 1.0, Estimat Glomerular Filtration Rate > 60, Glucose Level 91, Calcium Level 8.7 Height (Feet): 6 Height (Inches): 0.00 Weight (Pounds): 214 General Appearance: alert EENT: normal ENT inspection Neck: normal alignment Cardiovascular: normal peripheral pulses, normal rate, regular rhythm Respiratory/Chest: chest wall non-tender, lungs clear, normal breath sounds Abdomen: normal bowel sounds, non tender, soft Extremities: normal inspection Edema: no edema noted Arm (L), no edema noted Arm (R), no edema noted Leg (L), no edema noted Leg (R), no edema noted Pedal (L), no edema noted Pedal (R), no edema noted Generalized Neurologic: responsive, motor weakness Skin: normal pigmentation, warm/dry IMANI BOYKIN Jun 03, 2017 15:28
[2017-06-03 16:00] VITALS: BP 117/68
[2017-06-03] MEDS ORDERED: TBO-Filgrastim 300 mcg/0.5ml SQ ONE (16:00)
--- NOTE | 2017-06-03 23:04 | Consultation ---
Consult Note Consult Note Hematology Consult DOS: 06/03/17 RFC: leukopenia NIMA MD: Carmen Mcmahan ID 36-year-old male with hx of chronic seizures presents ED for evaluation of seizure. He was found on the bus with witnessed seizure. No reported head injury. Upon arrival patient is post ictal. he has a history of seizures takes Keppra and Dilantin. States he is compliant with his medications. He is admitted for uncontrolled seizures. Noted to have a wbc of 3.3 and prior to d/c , heme consult was requested. Allergies: IODINE (Verified Allergy, Severe, Rashes, "throat closes up", tachypnea, ) SHELLFISH DERIVED (Verified Allergy, Intermediate, Rashes, "throat closes up," tachypnea, 05/31/17) Meds Lamotrigine (Lamictal), 5 MG PO BID, (Reported) Levetiracetam (Keppra), Unknown Dose ORAL EVERY 12 HOURS, (Reported) Levetiracetam (Keppra), 500 MG ORAL BID Phenytoin Sodium Extended (Phenytoin Sodium Extended), 400 MG PO QHS, (Reported) Past Medical/Surgical History: (1) Seizure disorder (2) Substance abuse ROS All Other Systems: negative except mentioned in HPI PE General Appearance: WD/WN Lines, tubes and drains: peripheral HEENT: normocephalic Neck: non-tender Respiratory/Chest: chest wall non-tender Cardiovascular/Chest: normal peripheral pulses Abdomen: normal bowel sounds Genitourinary/Rectal: normal genital exam Extremities: normal range of motion Skin Exam: normal pigmentation Laboratory Tests Test 06/03/17 05:35 White Blood Count 3.3 K/UL (4.8-10.8) L Red Blood Count 4.95 M/UL (4.70-6.10) Hemoglobin 13.3 G/DL (14.2-18.0) L Hematocrit 42.9 % (42.0-52.0) Mean Corpuscular Volume 87 FL (80-99) Mean Corpuscular Hemoglobin 26.8 PG (27.0-31.0) L Mean Corpuscular Hemoglobin Concent 31.0 G/DL (32.0-36.0) L Red Cell Distribution Width 14.1 % (11.6-14.8) Platelet Count 348 K/UL (150-450) Mean Platelet Volume 7.1 FL (6.5-10.1) Neutrophils (%) (Auto) % (45.0-75.0) Lymphocytes (%) (Auto) % (20.0-45.0) Monocytes (%) (Auto) % (1.0-10.0) Eosinophils (%) (Auto) % (0.0-3.0) Basophils (%) (Auto) % (0.0-2.0) Differential Total Cells Counted 100 Neutrophils % (Manual) 47 % (45-75) Lymphocytes % (Manual) 35 % (20-45) Monocytes % (Manual) 4 % (1-10) Eosinophils % (Manual) 14 % (0-3) H Basophils % (Manual) 0 % (0-2) Band Neutrophils 0 % (0-8) Platelet Estimate Adequate Platelet Morphology Normal Hypochromasia 1+ Sodium Level 139 mEQ/L (135-145) Potassium Level 3.9 mEQ/L (3.4-4.9) Chloride Level 101 mEQ/L (98-107) Carbon Dioxide Level 29 mEQ/L (20-30) Anion Gap 9 (5-15) Blood Urea Nitrogen 9 mg/dL (7-23) Creatinine 1.0 mg/dL (0.7-1.2) Estimat Glomerular Filtration Rate > 60 mL/min (>60) Glucose Level 91 mg/dL (74-106) Calcium Level 8.7 mg/dL (8.6-10.2) Assessment and Recs: # Leukopenia - will need to order hepatitis and viral studies of hiv and review liver imaging, currently has not been ordered --> can f/u as a outpatient as well # Anemia 2/2 chronic disease --> w/u as a outpatient # Seizure, status epilepticis # VAN hx # AMS Jose D To Jun 03, 2017 23:04
[2017-06-04] MEDS ORDERED: KEPPRA750 MG ORAL (06:41)
--- NOTE | 2017-06-04 06:47 | Discharge Summary ---
Discharge Summary Hospital Course Date of Admission May 31, 2017 at 12:34 Date of Discharge Jun 03, 2017 at 19:12 Admitting Diagnosis seizures HPI Armen Lopez is a 36 year old male who was admitted on May 31, 2017 at 12:34 for Seizures Hospital Course dc summary#[id number] Discharge Medications New Medications: Levetiracetam (Keppra) 750 Mg Tablet 1500 MG ORAL BID, #60 TAB Continued Medications: Lamotrigine (Lamictal) 5 Mg Tb.chw.dsp 5 MG PO BID, TAB Phenytoin Sodium Extended (Phenytoin Sodium Extended) 200 Mg Capsule 400 MG PO QHS, CAP Discharge Condition Upon Discharge: stable Discharge Disposition Patient was discharged to Home (01) Discharge Diagnoses: Discharge Instructions Discharge Instructions Special Instructions I have been assigned to complete a D/C Summary on this account. I was not involved in the patient management Kaleigh Lemos NP (Vanchtein) Jun 04, 2017 06:47
--- NOTE | 2017-06-05 16:34 | Cardiology Report ---
APPROVED REPORT EKG Measurement Heart [id number] Sinus tachycardia Otherwise normal ECG
--- NOTE | 2017-06-06 09:16 | Discharge Summary ---
DATE OF ADMISSION: 05/31/2017 DATE OF DISCHARGE: 06/03/2017 REASON FOR ADMISSION: 36-year-old male, was brought to emergency room for evaluation. According to paramedics, the patient was found on the bus stop with a witnessed seizure. No reported head injury. Upon arrival to the ER the patient was postictal. The patient was in the emergency department few days ago with similar presentation. The patient with a known history of seizure disorder, taking Keppra and Dilantin. The patient stated that he was compliant with the medications. Denied alcohol or drug use. In the emergency department Dilantin level was low- 7.2 and glucose - 118. Urine tox screen was positive for amphetamines and marijuana. Creatinine - 1.5. No leukocytosis. Initially stable hemoglobin and hematocrit. EKG showed normal sinus rhythm. No acute ischemic changes. LFT were stable. The patient was given loading dose of Dilantin and admitted for further management. ADMITTING DIAGNOSES: 1. Epileptic seizure, generalized. 2. Noncompliance. 3. Polysubstance abuse. 4. Acute kidney injury. HOSPITAL STAY: The patient was admitted. Neurology consult was requested. Neurologist optimized anticonvulsant medication regimen and increased dose of Keppra. The patient was on seizure precaution. The patient was closely monitored. Ativan as needed for breakthrough seizure. No further seizure activity while in the hospital. The patient initially noted to have creatinine of 1.5, likely induced by drugs, possibly amphetamine. Prior to discharge creatinine down to 1.0. The patient was counseled on abstinence from street drugs. The patient was seen by a socially responsible investment adviser and was referred to outpatient drug rehabilitation program. The patient was counseled to comply with the medication regimen to avoid future exacerbation of seizure disorder secondary to noncompliance. Noted leukopenia, the lowest WBC- 3.3. Hematology consult was requested. The patient also had mild anemia, the lowest hemoglobin -12.6 and hematocrit -40.3 . Cable Maintainer seen and evaluated the patient. He diagnosed the patient with anemia of chronic disease. Recommended workup of anemia as outpatient. Leukopenia also need to be worked out for human immunodeficiency virus status, hepatitis panel, and liver images which could be done as outpatient as well. The patient was stable for discharge. Prescriptions provided. DISCHARGE DIAGNOSES: 1. Epileptic seizure, generalized. 2. Polysubstance abuse. 3. Acute kidney injury, resolved. 4. Noncompliance. 5. Leukopenia. 6. Anemia of chronic disease. DISCHARGE MEDICATIONS: See medication reconciliation list. DISCHARGE INSTRUCTIONS: The patient was discharged to friend's home. Follow up with the primary medical doctor. Silvio Mcmahan D.O. I have been assigned to dictate discharge summary on this account and I was not involved in the patient's management. Kaleigh BobbyVianney seth DR: MAAME JOB#: [id number] CC: MIRLANDE
== END 2017-06-03 19:12 | disposition home or self-care (01) | DRG 101 ==
LOC: EDBD 09:36 → EDUNIT# 10:10 → EMR 10:10 → 2E 12:34 → EDBEDREQ 13:13 → 3E 06-01 16:08
DX: G40.409 Other generalized epilepsy and epileptic syndromes, not intractable, without status epilepticus (principal); N17.9 Acute kidney failure, unspecified; D63.8 Anemia in other chronic diseases classified elsewhere; Z91.19 Patient's noncompliance with other medical treatment and regimen; D72.819 Decreased white blood cell count, unspecified; F15.10 Other stimulant abuse, uncomplicated; F12.10 Cannabis abuse, uncomplicated
CPT/HCPCS: 36415; 80048; 80053; 80185; 80299; 80300; 80329; 85007; 85025; 87081; 93005; J1165